=== PATIENT | male | born 1935 | race Caucasian/White ===

== ENCOUNTER 2016-11-15 15:56 | Emergency (ER) | payer MEDICARE, OTHER ==
--- NOTE | ~2016-11-15 | CN ---
Consultation Report [facility] [address] [place]. [address] NAME: ALANA POLK : 34 STATUS : DIS Meet PAT#: [id number] AGE: 81 ADM/REG DATE : 11/15/16 MR#: [id number] REPORT SERV DATE: 11/21/16 DICTATED BY: BERNARD GARCIA DATE: 11/21/16 REPORT STATUS : Draft TRANSCRIBED BY: MODL DATE: 11/21/16 DATE OF CONSULTATION: 11/16/2016 REQUESTING PHYSICIAN: Dr. Smalls. REASON FOR REQUEST: Evaluation of a left lower extremity hematoma. HISTORY: Mr. Polk is an 81-year-old gentleman who was in his usual state of health when he was doing some housework and a piece of plywood fell off a sawhorse and struck his left de anda. He developed swelling and redness and this precipitated him to report to his primary care physician. He attempted an I and D but very little purulent material was expressed. Meanwhile, the redness and swelling worsened, so he presented to the emergency room. Attempts were made again at a needle aspiration but no fluid was able to be obtained. He was started on intravenous antibiotics, and his redness has regressed significantly. He also had a CT scan that did not reveal any evidence of an abscess, just a complex hematoma. He denies any paresthesias and never had any similar episodes in the past. He has only taken aspirin but no routine blood thinners. He denies any fever, chills, and has good range of motion. PAST MEDICAL HISTORY: Significant for coronary artery disease, reflux, BPH, Hypercholesterolemia, and hypertension. Dr. Joseluis Marroquin is his primary care physician. SOCIAL HISTORY: Denies tobacco or alcohol use. He has a very supportive family. FAMILY HISTORY: Noncontributory. MEDICATIONS: Please consult the chart MAR. ALLERGIES: NO KNOWN DRUG ALLERGIES. REVIEW OF SYSTEMS: A comprehensive 12-point review of systems is obtained and completely negative other than what is mentioned in the history of present illness. PHYSICAL EXAMINATION: VITAL SIGNS: Temperature is 98.7, pulse 67, respirations 16, blood pressure 131/67. GENERAL: He is a well-developed gentleman in no acute cardiopulmonary distress. HEENT: Pupils are equal, round, and reactive to light. Extraocular movements are intact. Conjunctivae are nonicteric. NECK: Supple. He has no jugular venous distention. No carotid bruits. PULMONARY: Normal respiratory effort. ABDOMEN: Soft and nontender. EXTREMITIES: On his left de anda, he has an obviously swollen area that protrudes anteriorly and measures 5 x 5 cm. There is no obvious fluctuance. He has a magic marker that was placed last night outlining the area of erythema apparently, and this extends all way to the Consultation Report [address] [place]. [address] NAME: ALANA POLK : 34 STATUS : DIS Meet PAT#: [id number] AGE: 81 ADM/REG DATE : 11/15/16 MR#: [id number] REPORT SERV DATE: 11/21/16 DICTATED BY: BERNARD GARCIA DATE: 11/21/16 REPORT STATUS : Draft TRANSCRIBED BY: RICHARD DATE: 11/21/16 knee joint, and this is regressed today. He has excellent pulse and capillary refill, and neurovascularly, he is intact. His area of hematoma is confined to the anterior de anda. There is an obvious area of wound that has developed a dry eschar from pressure necrosis but no obvious gangrenous changes. LABORATORY DATA: White blood cell count 7.2, hematocrit 44, and platelet count 260. Lactic acid 0.7. Procalcitonin less than 0.05. Sodium 140, potassium 4, chloride 101, CO2 of 28, BUN 33, creatinine 1.4, glucose 103, total bilirubin 0.6, alkaline phosphatase 125, ALT 16, and AST 14. CT scan of the leg demonstrates soft tissue swelling measuring 7.5 x 8 cm consistent with a hematoma. There is no obvious abscess. ASSESSMENT: Left lower wound hematoma. Currently, there is no reason for debridement or drainage. I suspect this will resolve naturally, but I would recommend continuing oral antibiotics and wound care. I have offered to see the patient at my outpatient to follow him along, but at the present time, surgery is not indicated. PARI/RICHARD Bernard Garcia M.D. / [id number] CC: Vadim Frey M.D.
--- NOTE | ~2016-11-15 | DS ---
Discharge Summary [facility] [address] [place]. [address] NAME: ALANA POLK : 34 STATUS : DIS Meet PAT#: [id number] AGE: 81 ADM/REG DATE : 11/15/16 MR#: [id number] REPORT SERV DATE: 11/17/16 DICTATED BY: AMA CARLSON DATE: 11/16/16 REPORT STATUS : Draft TRANSCRIBED BY: MODL DATE: 11/16/16 ADMISSION DATE: 11/15/2016 DISCHARGE DATE: 11/16/2016 PRINCIPAL DIAGNOSIS: Traumatic hematoma of left lower extremity. SECONDARY DIAGNOSIS: Hypertension. HISTORY OF PRESENT ILLNESS: Please see Dr. Smalls's dictation of 11/15/2016. HOSPITAL COURSE: Admitted with a wound with swelling of his left lower extremity. This was initially felt to be infected. He received a course of Keflex with no improvement. Had a CT of the leg which did not actual reveal any evidence of infection but had a Hounsfield unit compatible with blood. On exam, there was no heat to the fluctuant area, this was felt to be compatible with a hematoma. He was seen by General Surgery, who did not wish to do any incision or drainage of the hematoma but instead he was instructed on wound care, on wrapping and discontinuation of aspirin for the next couple weeks. Until a followup of Dr. Alex Marroquin as an outpatient, other medications will remain unchanged. JOVANNI/RICHARD a Carlson M.D. / [id number] CC: Vadim Frey M.D. J. Daniel Stanley, M.D. John Harris, M.D.
--- NOTE | ~2016-11-15 | HP ---
History And Physical [place] [id number] [facility] [place]. [address] NAME: ALANA POLK : 34 STATUS : ADM IN PAT#: [id number] AGE: 81 ADM/REG DATE : 11/15/16 MR#: [id number] REPORT SERV DATE: 11/16/16 DICTATED BY: HARSHAL BARRERA DATE: 11/15/16 REPORT STATUS : Draft TRANSCRIBED BY: MODL DATE: 11/15/16 DATE OF ADMISSION: 11/15/2016 CHIEF COMPLAINT: Left leg pain and swelling. HISTORY OF PRESENT ILLNESS: This is an 81-year-old male with a history of hypertension, coronary artery disease, hypercholesterolemia, who presents to the emergency room at [facility] with the above-mentioned complaint. History is obtained from the patient, his family who is at bedside, and reviewing data available on the [employer] system. According to Mr. Polk who was in his usual state of health until about two weeks ago. They were in the process of remodeling their house and the floor work was going on. There was a piece of the subfloor on a workhorse and unfortunately this slipped out of the perch and fell onto his leg. The edge of the board stuck him in the anterior aspect of his left leg. The leg immediately swelled up despite the fact he put ice on it, and the leg became painful. They kept doing their ice routine and nothing helped. They went to see their primary care physician who thought it was an abscess and decided to do an I and D or tesfaye the wound. Nothing was drained and the patient was sent home on oral antibiotics. He finished the antibiotics and the pain continued, the swelling continued, and today they decided to come to the emergency room to be evaluated. In the emergency room, the ER provider apparently tried to needle it and did not get any return. There was redness and swelling in the extremity and Hospitalist Service is asked to admit him for further evaluation and treatment. At the time of my evaluation, Mr. Polk denied any chest pain, palpitations, or orthopnea. He had no cough, hemoptysis, night sweats, or weight loss. He has not had any recent falls or loss of consciousness. He has had no fevers, chills, nausea, vomiting, diarrhea, hematemesis, hematochezia, or hematuria. No other history of recent travel or exposures. He has had trauma to his lower extremity as described above, nothing else. PAST MEDICAL HISTORY: Significant for history of coronary artery disease with CABG in the past, history of hypercholesterolemia, gastroesophageal reflux disease, essential hypertension, history of vertigo, and benign prostatic hypertrophy. SOCIAL HISTORY: He does not smoke, drink, or use recreational drugs. FAMILY HISTORY: Noncontributory. MEDICATIONS: His medications at home were reviewed by me in the chart today and reordered by me. REVIEW OF SYSTEMS: As in history of present illness. All other systems were reviewed in detail and are quite unremarkable. History And Physical [address] [address] NAME: ALANA POLK : 34 STATUS : ADM IN [facility]#: [id number] AGE: 81 ADM/REG DATE : 11/15/16 MR#: [id number] REPORT SERV DATE: 11/16/16 DICTATED BY: HARSHAL BARRERA DATE: 11/15/16 REPORT STATUS : Draft TRANSCRIBED BY: RICHARD DATE: 11/15/16 PHYSICAL EXAMINATION: GENERAL: This is a pleasant 81-year-old, not in any acute distress. HEENT: His head is atraumatic and normocephalic. He is alert, awake, oriented to time, place, and person. Pupils are equal, reacting to light and accommodating. External ocular muscles are intact. Membranes are moist and pink. Sclerae are nonicteric. NECK: Supple with no jugular venous distention, lymphadenopathy, or thyromegaly. LUNGS: Clear to auscultation with no wheezes, rubs, or crackles. HEART: Heart sounds were regular with no murmurs, rubs, or gallops. ABDOMEN: Soft and nontender. Bowel sounds are present. EXTREMITIES: No cyanosis, clubbing, or edema. The left lower extremity shows the swelling in the calf muscle, and the whole extremity is tense. He does have significant pain when palpation. The ankle joint free. The knee joint is free with full range of motion in both joints. The dorsalis pedis pulses are palpable. Leg is just as warm as the other leg. There is some redness in the foot, but there is marked redness and swelling in the leg itself. The right lower extremity is unremarkable. There is no cyanosis or clubbing. NEUROLOGIC: Grossly intact. No focal sensory or motor deficits. Higher functions appeared intact. Gait was not examined. VITAL SIGNS: His vital signs today revealed temperature of 98.0, pulse 73, respirations 16 a minute, blood pressure was 140/68, and oxygen saturations were 98%, breathing 2 L of oxygen via nasal cannula. LABORATORY DATA: Laboratory data reviewed on the [employer] system showed sodium of 140, potassium 4.0, chloride 101, CO2 of 28, BUN was 33 with a creatinine of 1.41, which is about his baseline. His blood glucose was 103. His lactate was 0.7 today. CBC showed a normal white blood cell count, hemoglobin, hematocrit, and platelet count. No x-ray of the extremity was performed in the ER today. No EKGs were performed in the ER today. IMPRESSION: 1. Left lower extremity swelling and pain. 2. Left lower extremity cellulitis versus hematoma versus abscess. 3. Essential hypertension. 4. Coronary artery disease with coronary artery bypass graft. 5. Hypercholesterolemia. 6. Gastroesophageal reflux disease. 7. Benign prostatic hypertrophy. PLAN: We will admit Mr. Polk to the Hospitalist Service to the Med/Surge Tele Floor. After cultures are obtained, we will start him on empiric IV antibiotics. We will get a stat CT scan of his leg. He may need urgent surgical decompression. We will review the CT scan films and results, and then decide on this. He will certainly need a surgical consultation anyway. We will continue his home medications and treatments for blood pressure control, and we will also offer pain control as well. He will be on SCDs for DVT History And Physical [address] [address] NAME: ALANA POLK : 34 STATUS : ADM IN [facility]#: [id number] AGE: 81 ADM/REG DATE : 11/15/16 MR#: [id number] REPORT SERV DATE: 11/16/16 DICTATED BY: HARSHAL BARRERA DATE: 11/15/16 REPORT STATUS : Draft TRANSCRIBED BY: RICHARD DATE: 11/15/16 prophylaxis at least for now until we decide if any intervention needs to be performed. I have discussed the above plans with the patient and the family. Questions were answered and they are agreeable to the above recommendations. Hospitalist Service will be following him during his stay here. /RICHARD Harshal Barrera M.D. / [id number] CC: Vadim Allred M.D.
[~2016-11-15 15:56] MED LIST: CLARIT10 PO; COREG12 PO; FISH-EPA1000 MG PO; FLOMAX4 PO; HALF81 PO; PRIN20 PO; PROSCAR5 PO; REM15 PO; SINEQUAN 50 MG50 MG PO; ZOCOR20 PO
[2016-11-15] MEDS ORDERED: K500 PO (19:49)
[2016-11-15] MEDS ORDERED: PROSCAR5 PO (19:50)
[2016-11-15] MEDS ORDERED: COREG6 PO (19:50)
[2016-11-15] MEDS ORDERED: REM15 PO (19:51)
[2016-11-15] MEDS ORDERED: FLOMAX4 PO (19:51)
[2016-11-15] MEDS ORDERED: ZESTRIL20 MG PO (19:51)
[2016-11-15] MEDS ORDERED: ASAB PO ×2 (19:52→19:53)
[2016-11-15] MEDS ORDERED: L40 PO (19:52)
[2016-11-15] MEDS ORDERED: FISH OIL1200 MG PO (19:52)
[2016-11-15] MEDS ORDERED: ZOCOR20 PO (19:52)
[2016-11-15] MEDS ORDERED: CLARIT10 PO (19:53)
[2016-11-15] MEDS ORDERED: ADVIL PO (19:54)
[2016-11-15] MEDS ORDERED: NORV10 PO (19:54)
[2016-11-15 20:15] LABS: BASOPHILS 0.4 %; BASOPHILS ABSOLUTE 0.03 10/3/uL (0.0-0.16); EOSINOPHILS ABSOLUTE 0.07 10/3/uL (0.0-0.53); ER CBC TAT 0 Hrs 02 Mins; HEMATOCRIT 44.9 % (40.0-51.0); HEMOGLOBIN 15.7 g/dL (13.6-17.8); IMMATURE GRANULOCYTES 0.1 %; IMMATURE GRANULOCYTES ABSOLUTE 0.01 10/3/uL (0.0-0.11); LYMPHOCYTES 21.3 %; LYMPHOCYTES ABSOLUTE 1.54 10/3/uL (0.67-4.30); MEAN CORPUSCULAR HEMOGLOB 31.7 pg (26.0-34.0); MEAN CORPUSCULAR VOLUME 90.7 fL (80-100); MEAN PLATELET VOLUME 9.8 fL (9.2-13.0); MONOCYTES 8.6 %; MONOCYTES ABSOLUTE 0.62 10/3/uL (0.21-1.20); NEUTROPHILS 68.6 %; NEUTROPHILS ABSOLUTE 4.96 10/3/uL (2.02-8.40); PLATELET COUNT 260 10/3/uL (150-400); RBC DISTRIBUTION WIDTH 13.4 % (12.0-16.0); RED CELL COUNT 4.95 10/6/uL (4.7-6.1); WHITE BLOOD CELLS 7.2 10/3/uL (4.5-10.5)
[2016-11-15 20:18] LABS: MANUAL DIFF NO %
[2016-11-15 20:32] LABS: ALBUMIN 4.1 G/DL (3.5-5.0); ALKALINE PHOSPHATASE 125 U/L (45-117); BUN (BLOOD UREA NITROGEN) 33 MG/DL (6-23); CALCIUM, SERUM 9.8 MG/DL (8.5-10.4); CHLORIDE, SERUM 101 MMOL/L (96-112); CO2 (CARBON DIOXIDE) 28 MMOL/L (24-34); CREATININE 1.41 MG/DL (0.70-1.30); GFR AFRICAN AMERICAN 53 ML/MIN (>=60); GFR NON AFRICAN AMERICAN 46 ML/MIN (>=60); GLOBULIN 4.2 G/DL (2.5-4.1); GLUCOSE, SERUM 103 MG/DL (60-99); SGOT(AST) 14 U/L (5-40); SGPT(ALT) 16 U/L (5-65); SODIUM, SERUM 140 MMOL/L (135-148); TOTAL BILIRUBIN 0.6 MG/DL (0-1.2); TOTAL PROTEIN 8.3 G/DL (6.0-8.5)
[2016-11-15 22:01] LABS: PROCALCITONIN <0.05 ng/mL (<0.5)
[2016-11-16 07:44] LABS: BUN (BLOOD UREA NITROGEN) 31 MG/DL (6-23); CALCIUM, SERUM 8.4 MG/DL (8.5-10.4); CHLORIDE, SERUM 108 MMOL/L (96-112); CO2 (CARBON DIOXIDE) 24 MMOL/L (24-34); CREATININE 1.13 MG/DL (0.70-1.30); GFR AFRICAN AMERICAN 70 ML/MIN (>=60); GFR NON AFRICAN AMERICAN 60 ML/MIN (>=60); GLUCOSE, SERUM 98 MG/DL (60-99); PHOSPHORUS, SERUM 2.6 MG/DL (2.5-4.5); POTASSIUM, SERUM 3.6 MMOL/L (3.5-5.3); SODIUM, SERUM 145 MMOL/L (135-148)
== END 2016-11-16 20:44 | disposition home or self-care (01) ==
LOC: ER 15:56
PROVIDERS: Internal Medicine Pulmonary Disease; Nurse Practitioner Acute Care
DX: S80.12XA Contusion of left lower leg, initial encounter (principal); I10 Essential (primary) hypertension; R60.9 Edema, unspecified; L03.116 Cellulitis of left lower limb; I25.10 Atherosclerotic heart disease of native coronary artery without angina pectoris; E78.00 Pure hypercholesterolemia, unspecified; K21.9 Gastro-esophageal reflux disease without esophagitis; Z95.1 Presence of aortocoronary bypass graft
CPT/HCPCS: 73700-LT; 80048; 80053; 83605; 83735; 84100; 84145; 85025; 87040; 87070; 87205; 96365; 96366; 96375; 99285; A9270-GY; G0378; J2543; J3370